=== PATIENT | female | born 1960 | race Caucasian/White ===

== ENCOUNTER 2024-11-10 12:48 | Outpatient (CLI) | payer BC | END 2024-11-10 12:49 | disposition home or self-care (01) | LOC: CSHRAD 12:48 | PROVIDERS: ATTEND Internal Medicine Rheumatology | DX: M47.26 Other spondylosis with radiculopathy, lumbar region (principal); M41.86 Other forms of scoliosis, lumbar region | CPT/HCPCS: 72100 ==